=== PATIENT | male | born 1985 | race Caucasian/White ===

== ENCOUNTER 2018-05-16 16:00 | Emergency (ER) | payer SELFPAY ==
[~2018-05-16] VITALS: Ht 182.9 cm; Wt 109.1 kg
[~2018-05-16 16:00] MED LIST: AMOXICILLIN 50500 MG PO; AMOXICILLIN 8751 TAB PO; CLEOCIN HCL300 MG PO; MOTRIN 800800 MG/TAB PO; NO HOME MEDICATIONS; NORCO 325 MG-51 TAB PO; NORCO 325 MG-7.1 TAB PO; PHENERGAN 25 TA25 MG PO; PHENERGAN25 MG RC; ULTRAM 50MG TAB50 MG PO; ZOFRAN 4MG T4 MG/TAB PO
[2018-05-16 16:02] VITALS: BP 140/98; TEMP 97.4
[2018-05-16] MEDS ORDERED: AMOXICILLIN 50500 MG PO (16:41)
[2018-05-16] MEDS ORDERED: ULTRAM 50MG TAB50 MG PO (16:42)
[2018-05-16 16:47] VITALS: PULSE 72
== END 2018-05-16 16:47 | disposition home or self-care (01) ==
LOC: COL.ER 16:00
DX: K02.9 Dental caries, unspecified (principal); F17.210 Nicotine dependence, cigarettes, uncomplicated